=== PATIENT | male | born 1995 | race Caucasian/White ===

== ENCOUNTER 2020-01-14 08:11 | Emergency (ER) | payer SELFPAY ==
[~2020-01-14] VITALS: Ht 182.8 cm; Wt 71.7 kg
[~2020-01-14 08:11] MED LIST: HYDROCODONE BIT1 T11 PO
[2020-01-14 08:18] VITALS: BP 134/75
== END 2020-01-14 08:39 | disposition home or self-care (01) ==
LOC: ED 08:11
DX: S05.01XA Injury of conjunctiva and corneal abrasion without foreign body, right eye, initial encounter (principal); Z79.899 Other long term (current) drug therapy; X58.XXXA Exposure to other specified factors, initial encounter; Y93.89 Activity, other specified; Y92.89 Other specified places as the place of occurrence of the external cause; Y99.8 Other external cause status

== ENCOUNTER 2020-02-16 22:20 | Emergency (ER) | payer OTHER ==
[~2020-02-16] VITALS: Ht 182.8 cm; Wt 68.0 kg
[2020-02-16 22:29] VITALS: BP 134/74
== END 2020-02-17 00:38 | disposition left against medical advice (07) ==
LOC: ED 22:20
DX: M25.512 Pain in left shoulder (principal); Z79.899 Other long term (current) drug therapy; V49.9XXA Car occupant (driver) (passenger) injured in unspecified traffic accident, initial encounter; Y93.89 Activity, other specified; Y92.89 Other specified places as the place of occurrence of the external cause; Y99.8 Other external cause status

== ENCOUNTER 2020-02-17 16:43 | Emergency (ER) | payer OTHER ==
[~2020-02-17] VITALS: Ht 182.8 cm; Wt 70.3 kg
[2020-02-17 16:49] VITALS: BP 141/76
== END 2020-02-17 17:30 | disposition home or self-care (01) ==
LOC: ED 16:43
DX: S49.92XA Unspecified injury of left shoulder and upper arm, initial encounter (principal); M54.6 Pain in thoracic spine; V89.2XXA Person injured in unspecified motor-vehicle accident, traffic, initial encounter; Y93.89 Activity, other specified; Y92.89 Other specified places as the place of occurrence of the external cause; Y99.8 Other external cause status

== ENCOUNTER → 2021-06-25 | Outpatient (CLI) | payer BC | END | disposition home or self-care (01) | LOC: COVID19 16:44 | PROVIDERS: ATTEND Internal Medicine | DX: U07.1 COVID-19 (principal) ==

== ENCOUNTER → 2023-12-08 | Outpatient (CLI) | payer OTHER ==
[~2023-12-08] MED LIST changes: +PREDNISONE50 MG PO
[2023-12-08 16:06] LABS: BASO # 0.1 10*3/uL (0.0-0.1); BASO % 0.8 % (0.0-1.0); BILIRUBIN Negative (Negative); BLOOD Negative (Negative); CLARITY Clear (Clear); COLOR Yellow (Yellow); EOS # 0.5 10*3/uL (0.0-0.4); EOS % 4.5 % (1.0-4.0); GLUCOSE Negative (Negative); HEMATOCRIT 42.3 % (42.0-52.0); KETONE Negative (Negative); LEUKO ESTERASE Negative (Negative); LYMPH % 29.6 % (27.0-41.0); MEAN CELL VOLUME 87.8 fl (80.0-94.0); MEAN CORPUSCULAR HGB CONC 33.1 g/dl (33.0-37.0); MEAN PLATELET VOLUME 9.4 fl (9.6-12.3); MONO # 0.7 10*3/uL (0.1-1.0); MONO % 7.4 % (3.0-9.0); NEUT # 5.8 10*3/uL (2.3-7.9); NEUT % 57.5 % (47.0-73.0); NITRITE Negative (Negative); PLATELET COUNT AUTOMATED 283 10*3/uL (130-400); RED BLOOD COUNT 4.82 10*6/uL (4.50-5.90); SPECIFIC GRAVITY 1.025 (1.001-1.030); WHITE BLOOD COUNT 10.1 10*3/uL (4.8-10.8)
[2023-12-08 16:15] LABS: URINE CREATININE RANDOM 155.12 mg/dL
[2023-12-08 16:17] LABS: BACTERIA 1+; MUCOUS TRACE; WBC 0-2 wbc/hpf (0-5)
[2023-12-08 16:26] LABS: ALKALINE PHOSPHATASE 76 U/L (46-116); BUN 14 mg/dl (9-23); CHLORIDE 104 mmol/L (98-107); POTASSIUM 3.7 mmol/L (3.4-5.1); SGPT/ALT 23 U/L (5-49); TOTAL PROTEIN 7.2 gm/dL (6.0-8.0)
== END | disposition home or self-care (01) ==
LOC: LAB 15:21
PROVIDERS: ATTEND Student in an Organized Health Care Education/Training Program
DX: R35.0 Frequency of micturition (principal); R63.1 Polydipsia

== ENCOUNTER → 2024-03-22 | Outpatient (CLI) | payer OTHER | END | disposition home or self-care (01) | LOC: LAB 15:09 | PROVIDERS: ATTEND Family Medicine | DX: R35.89 Other polyuria (principal); R82.71 Bacteriuria ==